=== PATIENT | male | born 1955 | race Caucasian/White ===

== ENCOUNTER 2016-10-26 17:16 | Emergency (ER) | payer MEDICARE ==
[~2016-10-26 17:16] MED LIST: /NITR4TASL SL; /PREG100CA PO; ACET500C OR; ASPI81TA83 OR; ATEN50TA2 OR; BACT400T PO; BACT800T5 PO; CELE20TA OR; CELE20TA PO; CRES40TA OR; CRES40TA PO; DILA100C OR; DILA100C PO; FINA5TAB2 PO; FLON0.054; FLUTICASONE; HYDR-3713 PO; HYDROCODONE PO; LASI20TA OR; LASI20TA PO; LEVA750T OR; LISI-542 PO; LISI5TAB OR; MELOPOW OR; METF10004 PO; METFORMIN PO; METO50TA7 PO; NEUR300C OR; NITR4TASL SL; PERC7.5T8 OR; PREG100CA PO; PROS5TAB OR; RANI15TA PO; VICT18IN SC; ZANT150T OR; clindamycin OR; percocet OR
[2016-10-26] MEDS ORDERED: NORC1TAB4 PO (17:29)
[2016-10-26 17:58] LABS: BASO % 0.4 % (0.0-1.0); EOS # 0.1 K/mm3 (0.0-0.50); EOS % 1.9 % (0.0-3.0); LARGE UNSTAINED CELL # 0.1 K/mm3 (0.0-0.4); LARGE UNSTAINED CELL % 1.4 % (0.0-4.0); LYMPH # 0.9 K/mm3 (1.5-4.5); LYMPH % 12.4 % (24.0-44.0); MEAN CORPUSCULAR HEMOGLOBIN 30.7 pg (27.0-33.0); MEAN CORPUSCULAR HGB CONC 33.2 g/dl (32.0-36.5); MEAN CORPUSCULAR VOLUME 92.4 fl (80.0-96.0); MONO # 0.4 K/mm3 (0.0-0.8); MONO % 5.8 % (0.0-5.0); NEUTROPHILS # 5.1 K/mm3 (1.8-7.7); NEUTROPHILS % 78.2 % (36.0-66.0); PLATELET COUNT, AUTOMATED 207 k/mm3 (150-450); WHITE BLOOD COUNT 6.5 K/mm3 (4.0-10.0)
--- NOTE | 2016-10-26 18:14 | ECGEPIP ---
Stationary ECG Study [facility] - ED Test Date: 2016-10-26 Pat Name: ALLIE CRUZ Department: Room: - Gender: M [employer] Supervisor: clemencia : [id number] Requested By: Opal Escobar Order Number: [id number] Reading MD: Opal Escobar Measurements Intervals Anza Rate: 76 P: 18 NM: 179 QRS: 9 QRSD: 109 T: 18 QT: 370 QTc: 418 Interpretive Statements SINUS RHYTHM INFERIOR MYOCARDIAL INFARCTION, PROBABLY OLD NSTTW ABNORMALITY DECREASED RATE 12/10/14 Electronically Signed On 10-26-2016 18:14:30 EDT by Opal Escobar
[2016-10-26 18:20] LABS: ALBUMIN 3.5 GM/DL (3.2-5.2); ALKALINE PHOSPHATASE 102 U/L (45-117); ALT/SGPT 23 U/L (12-78); ANION GAP 8 MEQ/L (8-16); AST/SGOT 13 U/L (15-37); BILIRUBIN,DIRECT < 0.1 MG/DL (0.0-0.2); BILIRUBIN,TOTAL 0.2 MG/DL (0.2-1.0); BLOOD UREA NITROGEN 15 MG/DL (7-18); CALCIUM LEVEL 8.3 MG/DL (8.8-10.2); CARBON DIOXIDE LEVEL 26 MEQ/L (21-32); CHLORIDE LEVEL 108 MEQ/L (98-107); CREATININE FOR GFR 0.91 MG/DL (0.70-1.30); GLOMERULAR FILTRATION RATE > 60.0 (>49); GLUCOSE, FASTING 108 MG/DL (80-110); POTASSIUM SERUM 4.5 MEQ/L (3.5-5.1); SODIUM LEVEL 142 MEQ/L (136-145); TOTAL PROTEIN 6.2 GM/DL (6.4-8.2)
--- NOTE | 2016-10-26 18:32 | REP ---
Clinical: Seizures. Comparison: None. Findings: The patient is status post left frontal craniotomy with underlying encephalomalacia and white matter high density suggesting granulation tissue and less likely representing acute hemorrhage or mass. The ventricles are symmetric. The cisterns are normal. The remainder of the pfeiffer-white differentiation is normal no extra-axial fluid collection or intracranial hemorrhage is identified. Impression: 1. No prior examinations for comparison. 2. No definite acute process. 3. Left craniotomy and underlying encephalomalacia/postsurgical changes likely chronic. Small area of high density involving the underlying white matter likely represents granulation tissue and less likely acute process. 4. If the patient remains symptomatic consider repeat evaluation in 9-12 hours or as necessary. Signed by Blair Greene MD 10/26/2016 06:23 P
[2016-10-26] MEDS ORDERED: PHENYTOIN INJ 250 MG/5 ML VIAL (J1165) IV ONE (18:45)
[2016-10-26] MEDS ORDERED: PHENYTOIN 100 MG/2 ML VIAL (J1165) IV ONE (18:45)
[2016-10-26 18:51] LABS: METHADONE URINE NEGATIVE (NEGATIVE)
[2016-10-26 20:02] VITALS: BP 130/63
--- NOTE | 2016-10-27 08:40 | ED PDOC ---
Post-Departure Follow-Up RAdiology report reviewed clinically most consistent with no new process - dilantin level low likely etiology patient asymptomatic prior to and after seizure - patient called today by charge nurse feels well no complaints will followup closely with PCP return for symptoms Opal Escobar MD Oct 27, 2016 08:40
== END 2016-10-26 20:02 | disposition home or self-care (01) ==
LOC: M ED 17:16
DX: G40.909 Epilepsy, unspecified, not intractable, without status epilepticus (principal); E11.9 Type 2 diabetes mellitus without complications; I25.2 Old myocardial infarction; E78.00 Pure hypercholesterolemia, unspecified; I10 Essential (primary) hypertension; G47.30 Sleep apnea, unspecified
CPT/HCPCS: 36415; 70450; 80048; 80076; 80185; 80307; 85025; 93005; 99284; J1165

== ENCOUNTER → 2019-03-19 | Day surgery (SDC) | payer MEDICARE ==
[~2019-03-19] VITALS: Ht 177.8 cm; Wt 151.0 kg
[~2019-03-19] MED LIST changes: -/NITR4TASL SL; -/PREG100CA PO; +ASPI81TA85 PO; +FLUTISP; -LASI20TA PO; +LASI20TA3 PO; +LYRI100C PO; +NITR0.4S SL; +NORC1TAB7 PO; +NS 1,000 ML IV ONE
[2019-03-19 10:14] VITALS: BP 135/65
== END | disposition home or self-care (01) ==
LOC: M OPP 08:57
PROVIDERS: ATTEND Internal Medicine Gastroenterology
DX: K63.5 Polyp of colon (principal); Z53.09 Procedure and treatment not carried out because of other contraindication; I51.9 Heart disease, unspecified